=== PATIENT | female | born 1970 | race Caucasian/White ===

== ENCOUNTER → 2020-01-18 | Day surgery (SDC) | payer SELFPAY ==
[2020-01-18 12:16] VITALS: RESP 16
[2020-01-18 13:28] VITALS: BP 117/80; PULSE 99; TEMP 99.2
--- NOTE | 2020-01-18 14:04 | USB ---
EXAMINATION TYPE: US biopsy breast VAD LT, MG diagnostic mammo LT wo CAD DATE OF EXAM: 01/18/2020 CLINICAL HISTORY: R92.8 Abnormal Mammogram. TECHNIQUE: Ultrasound guided core biopsy of left 8:00 breast. COMPARISON: NONE FINDINGS: The procedure of ultrasound guided core biopsy was explained to the patient. Benefits, alternatives, and risks were discussed. An informed consent was then obtained. The patient was placed in supine positioning for imaging and for the procedure. The overlying skin was prepped and draped in usual sterile fashion. Lidocaine buffered with bicarbonate was used as anesthetic into the skin and subcutaneous tissue up to area of concern in the left 8:00 breast Under ultrasound guidance, a 12-gauge vacuum assisted biopsy gun device was used to obtain 3 core samples. Following this, a biopsy clip was left in lesion. Postprocedural mammogram was obtained The patient tolerated the procedure well without any immediate complication. The patient was kept in the radiology department for short stay after the procedure and then discharged home in stable condition. IMPRESSION: Successful, uncomplicated ultrasound guided core biopsy of area of concern in the left 8:00 breast, full pathology results to follow. Pathology Results: Benign LEFT BREAST, ULTRASOUND GUIDED CORE BIOPSY: Fibroadenoma. Recommendation Follow up mammogram of the left breast in 6 months. CHAIM
== END ==
LOC: RADUSWWP 12:03
PROVIDERS: ATTEND Surgery
DX: D24.2 Benign neoplasm of left breast (principal)
CPT/HCPCS: 88305; 77065; 19083; A4648; J2001

== ENCOUNTER → 2020-02-03 | Outpatient (CLI) | payer SELFPAY ==
--- NOTE | 2020-02-03 13:14 | P.PN ---
Subjective Progress Note Date: 02/03/20 Principal diagnosis: fibroadenoma Rain is a 49 year old white female developmentally challenged to about fifth grade seen in consultation for Leatha Renae regarding a bilateral mammogram performed in July 2019 which revealed in the lower medial quadrant of the left breast a 17 x 24 mm smoothly marginated nodule. An ultrasound was performed which revealed this to be solid and a BIRADS 4A for which biopsy versus six- month follow-up was recommended. The patient denies any lumps masses or nodules in her breast. No lesions of concern were identified in the right breast. The patient denies any nipple discharge or skin changes in her breast. She underwent a left breast core biopsy on 01-04-20 which was consistent with a fibroadenoma. Caffeine: Occasional Nicotine: Negative Theophylline: Negative Family history: Mother: Colon cancer paternal grandmother: cancer ? 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 Social History: Alcohol: Negative Nicotine: Negative Drugs: Negative - Constitutional Constitutional: Denies chills, Denies fever - EENT Eyes: denies blurred vision, denies pain Ears: left: tinnitus, deny: decreased hearing Ears, nose, mouth and throat: Denies headache, Denies sore throat - Breasts Breasts: bilateral: as per HPI - Cardiovascular Cardiovascular: Denies chest pain, Denies shortness of breath - Respiratory Respiratory: Denies cough, - Gastrointestinal Gastrointestinal: Denies abdominal pain, Denies diarrhea, Denies nausea, Denies vomiting - Genitourinary (Female) Genitourinary: Denies dysuria, Denies hematuria - Menstruation Menstruation: Reports period normal - Musculoskeletal Musculoskeletal: Denies myalgias - Integumentary Integumentary: Reports pruritus, Denies rash - Neurological Neurological: Denies numbness, Denies weakness - Psychiatric Comment: mentally challenged - Endocrine Endocrine: Denies fatigue, Denies weight change - Hematologic/Lymphatic Comment: baby aspirin daily - Allergic/Immunologic Allergic/Immunologic: Reports as per HPI Objective - Constitutional General appearance: Present: obese - EENT Eyes: Present: EOMI ENT: Present: hearing grossly normal - Neck Neck: Present: normal ROM - Respiratory Respiratory: bilateral: CTA - Cardiovascular Rhythm: regular Heart sounds: normal: S1, S2 - Integumentary Integumentary Comment(s): Left breast ultrasound core biopsy site clean and dry no evidence of infection or hematoma - Psychiatric Psychiatric Comment(s): mentally challenged Assessment and Plan Assessment: Impression: Developmentally challenged to fifth grade since 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 Repeat left breast ultrasound 6 months with a physician exam at that time CC: Leatha Renae encounter 15 minutes, > 50% of time in planning and counselling
[2020-02-03 14:57] VITALS: BP 116/80; PULSE 88; RESP 16; TEMP 98.3
== END | disposition home or self-care (01) ==
LOC: WWCWWP 12:53
PROVIDERS: ATTEND Surgery
DX: Z53.9 Procedure and treatment not carried out, unspecified reason (principal)